=== PATIENT | male | born 1985 | race Caucasian/White ===

== ENCOUNTER 2016-12-09 05:04 | Emergency (ER) | payer SELFPAY ==
[~2016-12-09] VITALS: Ht 157.5 cm; Wt 82.9 kg
[2016-12-09 05:04] VITALS: Ht 157.5 cm; Wt 82.9 kg
[~2016-12-09 05:04] MED LIST: INSU100C6 SQ; INSU3INS3 SQ; no medications
--- OUTSIDE RECORDS SUMMARY | 2016-12-09 05:08 | XMS REPORT ---
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
--- OUTSIDE RECORDS SUMMARY | 2016-12-09 05:08 | XMS REPORT | Continuity of Care Document ---
Author Author [facility] Organization [facility] Address Unknown Phone Unavailable Allergies Active Description Code Type Severity Reaction Onset Reported/Identified Relationship to Patient Clinical Status Yes No Known Allergies Drug Allergy 12/08/2012 Yes No Known Drug Allergies Drug Allergy 12/08/2012 Yes No Known Food Allergies Food Allergy 12/08/2012 Yes No Known Allergies Drug Allergy N/A N/A 12/26/2012 Yes No Known Drug Allergies Drug Allergy N/A N/A 12/26/2012 Yes No Known Food Allergies Food Allergy N/A N/A 12/26/2012 Medications Problems Date Dx Coded Attending Type Code Diagnosis Diagnosed By 07/07/2012 Prakash Fountain III, MD Final 250.00 DM2/NOS UNCOMP NSU 07/07/2012 Prakash Fountain III, MD Final 305.00 ALCOHOL ABUSE-UNSPEC 12/08/2012 Yonathan Johnson MD Final 305.00 ALCOHOL ABUSE-UNSPEC 12/08/2012 Yonathan Johnson MD Final 518.81 AC RESPIRATORY FAILURE 12/14/2012 Say Aguilar MD Final 250.00 DM2/NOS UNCOMP NSU 12/14/2012 Say Aguilar MD Final 305.00 ALCOHOL ABUSE-UNSPEC 12/14/2012 Say Aguilar MD Final 305.1 TOBACCO USE DISORDER 12/14/2012 Say Aguilar MD Admitting 719.46 JOINT PAIN-LOWER LEG 12/14/2012 Say Aguilar MD Final 916.0 ABRASION LE W/O INFECT 12/14/2012 Say Aguilar MD Final 924.11 CONTUSION OF KNEE 12/14/2012 Say Aguilar MD External E928.9 ACCIDENT NOS 12/26/2012 Isela Benavides MD Final 250.00 DM2/NOS UNCOMP NSU 12/26/2012 Isela Benavides MD Final 291.81 ALCOHOL WITHDRAWAL 12/26/2012 Isela Benavides MD Final 303.91 ALC DEP NEC NOS-CONT 12/26/2012 Isela Benavides MD Final 304.43 AMPHETAMINE DEP-REMISS 12/26/2012 Isela Benavides MD Final V03.82 STREP PNEUMONIAE VACCINE 12/26/2012 Isela Benavides MD Final V62.84 SUICIDE IDEATION 12/26/2012 Isela Benavides MD Final V62.85 HOMICIDAL IDEATION Procedures Code Description Performed By Performed On 96.71 CONT MECH VENT-<96 HOURS Yonathan Johnson MD 12/08/2012 Results Encounters ACCT No. Visit Date/Time Discharge Status Pt. Type Provider Facility Loc./Unit Complaint [id number] 12/26/2012 12:40:00 2012 19:05:00 DIS Inpatient Isela Benavides MD [address] [id number] 12/14/2012 21:56:00 2012 22:22:00 DIS Emergency Say Aguilar MD [facility] [id number] 12/08/2012 15:25:00 2012 22:00:00 DIS Inpatient Yonathan Johnson MD [address] [id number] 07/07/2012 18:49:00 2011 23:20:00 DIS Emergency Prakash Fountain III, MD [facility]
--- OUTSIDE RECORDS SUMMARY | 2016-12-09 05:08 | XMS REPORT ---
Author Author [place], [facility] - Organization Unknown Address Unknown Phone Unavailable Allergies, Adverse Reactions, Alerts * No Latex Allergy. * No IV Contrast Allergy. * No Known Drug Allergies. * No Known Food Allergies. * No Known Allergies. Problems * Alcohol Abuse* Status:Active. * Diabetes Mellitus, Type 2* Status:Active. * Fall Risk* Status:Resolved. * Respiratory Failure* Status:Resolved. Procedures No Procedures Documented. Medication It is the responsibility of the patient or patient international representative to confirm the list of medications with either the patient's personal care provider or the patient's follow-up care provider to ensure the patient has an appropriate list of medications to take at home. Discharge medications* metFORMIN 500 mg Tablet, Ordered By: Isela Benavides Directions: 1 tablet oral twice a day * acetaminophen (Mapap (acetaminophen)) 325 mg Tablet, Ordered By: Isela Benavides Directions: 325-650 MG oral four times daily PRN FEVER OR PAIN * famotidine 20 mg Tablet, Ordered By: Isela Benavides Directions: 1 tablet oral twice a day * foLIC Acid 1 mg Tablet, Ordered By: Isela Benavides Directions: 1 tablet oral daily Additional Instructions: CALL PHARMACY IF IV FOLIC ACID IS NEEDED. * MULTIVITAMIN W-MINERALS (THERAGRAN M (EQUIV)) 1 EACH=1 TAB Oral TAB DAILY STAT and then Routine Directions: 1 tablet oral daily * thiamine HCl (Vitamin B-1) 100 mg Tablet, Ordered By: Isela Benavides Directions: 1 tablet oral daily Additional Instructions: CALL PHARMACY IF IM/IV THIAMINE IS NEEDED. * haloperidol 2 mg Tablet, Ordered By: Isela Benavides Directions: 1 tablet oral every two hours PRN HALLUCINATIONS Additional Instructions: GIVE ALTERNATIVE TO INJECTABLE FOR HALLUCINATIONS UNRELIEVED BY ATIVAN. CALL PRESCRIBER AFTER FIRST DOSE. * haloperidol lactate 5 mg/mL Solution, Ordered By: Isela Benavides Directions: 0.4 mL MISC every two hours PRN HALLUCINATIONS Additional Instructions: GIVE IV/IM ALTERNATIVE TO ORAL FOR HALLUCINATIONS UNRELIEVED BY ATIVAN. CALL PRESCRIBER AFTER FIRST DOSE. * loperamide 2 mg Capsule, Ordered By: Isela Benavides Directions: 1 capsule oral PRN _ Diarrhea Additional Instructions: GIVE 2 MG AFTER EACH LOOSE STOOL MAXIMUM OF 8 CAPS/DAY * loperamide 2 mg Capsule, Ordered By: Isela Benavides Directions: 2 capsule oral PRN _ Diarrhea Additional Instructions: GIVE 4 MG AFTER FIRST LOOSE STOOL. * LORazepam 1 mg Tablet, Ordered By: Isela Benavides Directions: 1 tablet oral PRN _ Additional Instructions: FOR CIWA-AR 8-14 RECHECK CIWA-AR IN ONE HOUR. GIVE ALTERNATIVE TO INJECTABLE ATIVAN. * promethazine 25 mg Tablet, Ordered By: Isela Benavides Directions: 1 tablet oral every four hours PRN NAUSEA/VOMITING Additional Instructions: GIVE ALTERNATIVE TO IM * nicotine (Nicoderm CQ) 14 mg/24 hour Patch 24 hr, Ordered By: Arleen Caban Directions: 1 each topical daily Stopped medications* None Results LAB--BEDSIDE TESTING from 12/26/2012 6:57 PMGlucose NPT 132 mg/dL H (70-100 mg/dL ) LAB--BEDSIDE TESTING from 12/27/2012 11:49 AMGlucose NPT 237 mg/dL H (70-100 mg/ dL) LAB--BEDSIDE TESTING from 12/27/2012 5:31 PMGlucose NPT 217 mg/dL H (70-100 mg/dL ) LAB--BEDSIDE TESTING from 12/27/2012 9:02 PMGlucose NPT 120 mg/dL H (70-100 mg/dL ) LAB--BEDSIDE TESTING from 12/28/2012 3:08 PMGlucose NPT 183 mg/dL H (70-100 mg/dL ) LAB--BEDSIDE TESTING from 12/28/2012 10:45 PMGlucose NPT 203 mg/dL H (70-100 mg/ dL) LAB--BEDSIDE TESTING from 12/29/2012 9:52 AMGlucose NPT 319 mg/dL H (70-100 mg/dL ) LAB--BEDSIDE TESTING from 12/29/2012 2:51 PMGlucose NPT 258 mg/dL H (70-100 mg/dL ) LAB--CHEMISTRY from 12/27/2012 4:03 AMAnion Gap 7 (3-20 ) Albumin 3.3 g/dL L (3.5-4.8 g/dL) BUN 7 mg/dL (4-20 mg/dL) Calcium 9.0 mg/dL (8.6-10.0 mg/dL) Chloride 105 mEq/L (99-109 mEq/L) CO2 27 mEq/L (22-32 mEq/L) Creatinine 0.60 mg/dL L (0.64-1.27 mg/dL) eGFR >60 (>60- ) Glucose 81 mg/dL (70-100 mg/dL) Potassium 3.9 mEq/L (3.6-5.1 mEq/L) Magnesium 1.8 mg/dL (1.8-2.5 mg/dL) Sodium 139 mEq/L (136-144 mEq/L) Phosphorus 4.6 mg/dL (2.4-4.7 mg/dL) LAB--CHEMISTRY from 12/29/2012 4:01 AMAnion Gap 9 (3-20 ) Albumin 3.6 g/dL (3.5-4.8 g/dL) Alkaline Phosphatase 114 U/L H (26-104 U/L) ALT (SGPT) 184 U/L H (17-63 U/L) AST (SGOT) 122 U/L H (15-41 U/L) Bilirubin Total 0.5 mg/dL (0.2-1.2 mg/dL) BUN 14 mg/dL (4-20 mg/dL) Calcium 9.0 mg/dL (8.6-10.0 mg/dL) Chloride 106 mEq/L (99-109 mEq/L) CO2 23 mEq/L (22-32 mEq/L) Creatinine 0.68 mg/dL (0.64-1.27 mg/dL) eGFR >60 (>60- ) Globulin 3.1 g/dL (1.9-4.3 g/dL) Glucose 166 mg/dL H (70-100 mg/dL) Potassium 3.7 mEq/L (3.6-5.1 mEq/L) Sodium 138 mEq/L (136-144 mEq/L) Protein 6.7 g/dL (6.1-7.9 g/dL) LAB--SERODIAGNOSIS from 12/27/2012 4:03 AMHepatitis A Antibody IGM Negative Hepatitis B Core Antibody IGM Negative Hepatitis B Surface Antigen (HBSAG) Negative Hepatitis C Total Antibody Negative HIV 1 and 2 Antibodies Negative
--- OUTSIDE RECORDS SUMMARY | 2016-12-09 05:08 | XMS REPORT | Continuity of Care Document ---
Author Author [facility] Organization [facility] Address Unknown Phone Unavailable Support Name Relationship Address Phone AUGUSTINE BANGURA MD Caregiver [address] [place] [address] [place] [phone] Fletcher CHAMBERLAIN MD Caregiver [address] [place], [place] [phone] COYLE, ANNA Next Of Kin [address] [place] [address] Insurance Providers Payer Name Policy Number Subscriber Name Relationship Self Pay NorthSrinivas cedeño M 18 Self Problems Medical Problems Problem Onset Date Status Closed fracture of 5th metacarpal Unknown Active Closed fracture of 5th metacarpal Unknown Active Medications Medication Dose Route Sig Days/Qty Instructions Order Date Discontinued Date Status [no medications] 12/01/14 Active Insulin Glargine,Hum.rec.anlog 15 Unit SQ BEDTIME 12/01/14 Active Insulin Aspart 10 Unit SQ BEFORE MEALS 12/01/14 Active Social History Social History Problem Response Recorded Date/Time Hx Substance Use No 12/01/2014 9:13am Hx Alcohol Use No 12/01/2014 9:13am Tobacco Usage none 12/01/2014 8:53am Query Response Start Date Stop Date Smoking Status Smoker,current status unk Hospital Discharge Instructions No hospital discharge instructions. Plan of Care No plan of care. Functional Status Query Response Date Recorded Physical Hygiene Self December 01, 2014 9:13am Disabilities None December 01, 2014 9:13am Devices Used None December 01, 2014 9:13am Dressing Self December 01, 2014 9:13am Ambulation Self December 01, 2014 9:13am Diet Self December 01, 2014 9:13am Mental Status Alert Oriented December 01, 2014 9:13am Disabilities None December 01, 2014 9:13am Devices Used None December 01, 2014 9:13am Physical Hygiene Self December 01, 2014 9:13am Dressing Self December 01, 2014 9:13am Ambulation Self December 01, 2014 9:13am Diet Self December 01, 2014 9:13am Allergies, Adverse Reactions, Alerts Allergen Type Severity Reaction Status Last Updated No Known Allergies Active 12/01/14 Immunizations Name Given Type Hx Influenza Vaccination No Historical Hx Pneumococcal Vaccination No Historical Hx Influenza Vaccination No Historical Vital Signs Acute Vital Signs Vital Response Date/Time Temperature (Fahrenheit) 97.1 deg F (96.8 - 99.1) Temperature (Calculated Celsius) 36.27947 degrees C (36.0 - 37.3) Pulse Rate (adult) 95 bpm (60 - 100) Respiratory Rate 16 breaths/min (10 - 20) O2 Sat by Pulse Oximetry 96 % (90 - 100) Blood Pressure 135/77 mm Hg Height 5 ft 2 in Weight 169 lb Body Mass Index 30.0 kg/m^2 Results No known relevant diagnostic tests, laboratory data and/or discharge summary. Procedures No known history of procedures. Encounters Encounter Location Date/Time Departed Emergency Room [facility] 12/01/14 8:17am Recent Diagnosis
--- OUTSIDE RECORDS SUMMARY | 2016-12-09 05:08 | XMS REPORT ---
Author Author [place], [facility] - Organization Unknown Address Unknown Phone Unavailable Allergies, Adverse Reactions, Alerts * No Latex Allergy. * No IV Contrast Allergy. * No Known Drug Allergies. * No Known Food Allergies. * No Known Allergies. Problems * Alcohol Abuse* Status:Active. * Fall Risk* Status:Active. * Respiratory Failure* Status:Active. Procedures No Procedures Documented. Medication Medication reconciliation has not been performed. Results
--- OUTSIDE RECORDS SUMMARY | 2016-12-09 05:08 | XMS REPORT ---
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
--- OUTSIDE RECORDS SUMMARY | 2016-12-09 05:08 | XMS REPORT ---
Author Author Dami Day Organization [employer] Address Unknown Phone Unavailable Care Team Providers Care Rat Farmer Name Role Phone Dami Day CP Unavailable Allergies, Adverse Reactions, Alerts Substance Reaction Event Type N.K.D.A. Info Not Available Non Drug Allergy Problems Problem Type Condition ICD-9 Code Onset Dates Condition Status Problem Nondependent alcohol abuse, unspecified drunkenness 305.00 Active Assessment Diabetes Mellitus Type 2, not stated as uncontrolled 250.00 Active Problem Diabetes Mellitus Type 2, not stated as uncontrolled 250.00 Active Assessment Nondependent alcohol abuse, unspecified drunkenness 305.00 Active Assessment Trigger finger (acquired) 727.03 Active Medications Medication Code System Code Instructions Start Date End Date Status Dosage NovoLog [facility] [address]-95 100 UNIT/ML Subcutaneous with meals Sep 27, 2014 5 units Lantus [facility] [address]-19 100 UNIT/ML Subcutaneous Once a day Sep 27, 2014 15 units Procedures Procedure Coding System Code Date HEMOGLOBIN A1C, IN HOUSE CPT-4 00397 Sep 27, 2014 OFFICE VISIT, EST-LOW COMPLEXITY (15 MIN.) CPT-4 58439 Sep 27, 2014 Vital Signs Date/Time: Sep 27, 2014 Height N/A in Weight 178.12 lbs Temperature 98.6 F Blood Pressure Diastolic 74 mm Hg Blood Pressure Systolic 128 mm Hg Cardiac Monitoring Heart Rate 90 /min BMI 30.57 Index Respiratory Rate 18 /min Results No Known Results Summary Purpose [employer] Submission
--- NOTE | 2016-12-09 05:14 | NUR ---
PROVIDER DR PEREZ IN ROOM TO SEE PT
[2016-12-09] MEDS ORDERED: PENI500T2 PO (05:20)
[2016-12-09] MEDS ORDERED: HYDR-4246 PO (05:20)
--- NOTE | 2016-12-09 05:20 | ERPDOC ---
Departure Disposition Decision Date: Dec 09, 2016 Disposition Decision Time: 05:18 Disposition: 01 DISCHARGED HOME, SELF-CARE Impression Impression Impression: Primary Impression: Pain, dental Severity: Mild Condition: Improved Seen By: Physician only Referrals: Fletcher CHAMBERLAIN MD (Family) 2 Days Patient Instructions: Dental Caries (ED), ED Dental Follow-up, Toothache (ED) Problems/Meds/Labs Reviewed?: Yes Medications reviewed and manag: Yes Follow up care ordered?: Yes Mental Status: Alert, Oriented Scripts Hydrocodone/Acetaminophen ([place] 5-325 Tablet) 5-325 Tablet 1 TAB PO Q4HR Y for PAIN for 2 Days, #12 TAB 0 Refills Prov: YOBANI PEREZ DO 12/09/16 Penicillin V Potassium (Penicillin V Potassium) 500 Mg Tablet 1 TAB PO QID for 10 Days, #40 TAB 0 Refills Prov: ANAYOBANI Gautam DO 12/09/16 HPI - General Medical General Chief Complaint: Toothache Stated Complaint: TOOTH AND JAW PAIN Time Seen by Provider: 05:06 Source: patient Exam Limitations: no limitations HPI - General Medical Initial Comments 31-year-old male presents the emergency department with a chief complaint of dental pain. Patient noted onset of symptoms one week ago while at home. Patient has a history of diffusely poor dentition. Patient states that he has a history of dental caries and part of his right upper posterior molar has eroded. This is causing the patient pain. Patient describes the pain as sharp. Pain is moderate. There is no radiation. Pain improves with ibuprofen and Orajel. Patient denies any other complaints or associated symptoms. He was at home when the symptoms began. Symptoms have been persistent in nature since onset. Occurred At: home Onset: Gradual Allergies: Coded Allergies: No Known Allergies (Unverified , 12/01/14) Past History Past Medical History Metabolic: diabetes Surgical History Joint: knee Family History Family History: Negative Vaccines Hx Influenza Vaccination: No Hx Pneumococcal Vaccination: No Social History Smoking Status: Never smoker Substance Use Type: does not use Alcohol Intake: none Review of Systems Constitutional Constitutional: DENIES: chills, fever Eyes General: DENIES: erythema, exudate Lids/Accessories: DENIES: erythema, swelling Vision: DENIES: acuity, blurring ENMT Ears: DENIES: drainage, erythema Hearing: DENIES: hearing loss Balance: DENIES: ataxia, falling to one side Sinuses: DENIES: congestion, pain Nose: DENIES: nosebleeds, pain Mouth/Throat: DENIES: painful swallowing, sore throat Teeth: pain Jaw: DENIES: pain Cardiovascular Cardiac: DENIES: chest pain, dyspnea on exertion Rhythm/Rate: DENIES: irregular beat, palpitations Vascular: DENIES: pedal edema, unilateral swelling Pulmonary Respiratory: DENIES: cough, dyspnea, pleuritic chest pain, sputum GI Upper Abdomen: DENIES: nausea, pain, vomiting Lower Abdomen: DENIES: diarrhea, pain General: DENIES: dysuria, frequency Musculoskeletal General: DENIES: joint pain, tenderness Integumentary Skin: DENIES: itching, rash Neurological General: DENIES: headache, numbness, weakness Psychiatric Psychiatric: DENIES: emotional instability, suicidal ideation/attempt Endocrine Endocrine: DENIES: polydipsia, polyphagia Hematologic/Lymphatic Hematologic/Lymphatic: DENIES: frequent nosebleeds, lymphadenopathy Allergic/Immunological Allergic/Immunoligical: DENIES: allergic reactions, hives Physical Exam General General Nourishment: well nourished, well developed, appears stated age, no acute distress, adult General Body Habitus: well groomed Vitals and Pain First Documented Vital Signs Date Time Temp Pulse Resp B/P Pulse Ox O2 Delivery O2 Flow Rate FiO2 12/09/16 05:04 97.9 111 20 164/98 97 Room Air Weight: Kilograms: Height (feet): 5 Height (inches): 2 Triage Pain Scale: RN VS reviewed by Provider: Yes Normal Exams: Head: Normocephalic w/o trauma Eyes: Pupils are PERRLA w/ EOMI, No scleral icterus, irritation, or foreign bodies noted ENMT: No facial trauma, nasal exudates, pharyngeal erythema, or exudates are noted Neck: Full range of motion, without adenopathy, JVD, bruits or thyromegaly Chest/Resp: Clear all hernandez, with good airflow, and symmetry bilaterally CV: Regular rate and rhythm, without murmur or gallop, Pulses 2+ all extremities, capillary refill, <2 seconds all ext., no pedal edema noted Abdomen: Bowel sounds positive, soft, non-tender, non-distended, no hepatosplenomegaly, masses or bruits noted Lymphatic: No lymphadenopathy, or lymphedema noted Musculoskeletal: No tenderness, or deformity noted, good range of motion, all extremities Integumentary: No rashes, hives, or bruising noted, hair and nails, without abnormality Neurologic: Patient is alert, and oriented, cranial nerves, motor/sensory/ cerebellar, exams w/o gross deficits, to observation Psychiatric: Patient exhibits, appropriate attention, emotion and affect ENMT (brief) Comments Oral - Tooth number 2 is tender to percussion with dental caries. No sign of abscess. Uvula midline. Voice is normal. Handling secretions without difficulty. No pharyngeal erythema. No tonsillar exudate. No elevation of tongue. No facial swelling or cellulitis. Diffusely poor dentition. Differential Diagnoses Considering: Other (dental pain/dental caries/dental trauma/dental abscess) Progress Results/Orders Orders Procedure Category Date Status Time Hydrocodone/Acetaminophen PHA 12/09/16 In Process ([place] 5/325) 05:30 Penicillin V PHA 12/09/16 In Process Potassium (Pen Vk) 05:30 Medications Current ED Medications Acetaminophen/ Hydrocodone Bitart ([place] 5/325) 1 tab O ONCE PO ; Start at 05:30; Stop 12/09/16 at 05:31 Penicillin V Potassium (Pen Vk) 500 mg O ONCE PO ; Start 12/09/16 at 05:30; Stop 12/09/16 at 05:31 Progress Progress Patient is provided with prescriptions for [place] and penicillin VK. Initial doses are provided in the emergency Department. Patient is discharged home in improved condition. Patient is to follow up as instructed. Patient is in agreement with the current plan of management. Patient is to return to the emergency department if his condition worsens or changes in any manner. Patient is provided with instructions for dental follow-up. He verbalizes agreement and understanding. Repeat HR - 98 taken by me immediately prior to discharge. YOBANI PEREZ DO Dec 09, 2016 05:20
[2016-12-09] MEDS ORDERED: INSU500V SQ (05:27)
[2016-12-09] MEDS ORDERED: PENICILLIN V POTASSIUM 250 MG TABLET PO ONE (05:30)
[2016-12-09] MEDS ORDERED: HYDROCODONE/APAP 5 mg/325 mg TABLET PO ONE (05:30)
[2016-12-09 05:40] VITALS: BP 164/98; PULSE 111; RESP 20; TEMP 97.9; O2SAT 97
--- NOTE | 2016-12-09 05:40 | NUR ---
DEPART PT IS GIVEN DISMISSAL INSTRUCTIONS WITH VERBAL UNDERSTANDING. PT IS GIVEN SCRIPTS X2. PT LEAVES AMBULATORY TO ED REGISTRATION DESK
--- OUTSIDE RECORDS SUMMARY | 2016-12-09 05:40 | XMS REPORT | Continuity of Care Document ---
Author Author [facility] Organization [facility] Address Unknown Phone Unavailable Support Name Relationship Address Phone AUGUSTINE BANGURA MD Caregiver [address] [place] [address] [place] [phone] Fletcher CHAMBERLAIN MD Caregiver [address] [place], [place] [phone] COYLE, ANNA Next Of Kin [address] [place] [address] Insurance Providers Payer Name Policy Number Subscriber [...] F (96.8 - 99.1) Temperature (Calculated Celsius) 36.82362 degrees C (36.0 - 37.3) Pulse Rate [...] Encounters Encounter Location Date/Time Departed Emergency Room [facility] 12/01/14 8:17am Recent Diagnosis
--- OUTSIDE RECORDS SUMMARY | 2016-12-09 05:40 | XMS REPORT ---
Author Author [place], [facility] - Organization Unknown Address Unknown Phone [...] the responsibility of the patient or patient sales representative rural power to confirm the list of medications with [...]
--- OUTSIDE RECORDS SUMMARY | 2016-12-09 05:40 | XMS REPORT | Continuity of Care Document ---
Author Author [facility] Organization [facility] Address Unknown Phone Unavailable Allergies Active Description [...] Status Pt. Type Provider Facility Loc./Unit Complaint [id number] 12/26/2012 12:40:00 2012 19:05:00 DIS Inpatient Isela Benavides MD [address] [id number] 12/14/2012 21:56:00 2012 22:22:00 DIS Emergency Say Aguilar MD [facility] [id number] 12/08/2012 15:25:00 2012 22:00:00 DIS Inpatient Yonathan Johnson MD [address] [id number] 07/07/2012 18:49:00 2011 23:20:00 DIS Emergency Prakash Fountain III, MD [facility]
--- OUTSIDE RECORDS SUMMARY | 2016-12-09 05:40 | XMS REPORT ---
Author Author [place], [facility] - Organization Unknown Address Unknown Phone [...]
== END 2016-12-09 05:40 | disposition home or self-care (01) ==
LOC: ED 05:04
DX: K08.89 Other specified disorders of teeth and supporting structures (principal)